=== PATIENT | male | born 1940 | race Caucasian/White ===

== ENCOUNTER 2019-02-02 17:01 | Inpatient (IN) | payer OTHER, MEDICAID ==
[~2019-02-02] VITALS: Ht 177.8 cm; Wt 79.4 kg
[~2019-02-02 17:01] MED LIST: AMLO5TAB4 PO; ASPI-1153 PO; BUS5 PO; CAT.1 PO; CAT.2 PO; DICL50TA9 PO; DIVA-74 PO; DOCU-19 PO; FAMO20TA8 PO; FURO-150 PO; GABA-529 PO; GLIP10TA11 PO; HYDR-4038 PO; LOPE2CAP PO; LORA-258 PO; LORA10TA7 PO; LOSA50TA3 PO; METF1000 PO; MIRA25TA PO; MOM PO; NAPR250T PO; POTA8TAB4 PO; PRO10 PO; PRO40 PO; SIME80TA PO; SSREG SUBCUT; TAMS-11 PO
[2019-02-02 17:05] VITALS: BP_SYST 146
[2019-02-02] MEDS ORDERED: NACL 0.9% 1,000 ML IV ONE (17:15)
[2019-02-02] MEDS ORDERED: MULT-976 PO (17:44)
[2019-02-02] MEDS ORDERED: POTASSIUM CL PO (17:44)
[2019-02-02] MEDS ORDERED: LOSA100T3 PO (17:44)
[2019-02-02] MEDS ORDERED: diclofenac gel TP (17:44)
[2019-02-02] MEDS ORDERED: GABA-529 PO (17:44)
[2019-02-02] MEDS ORDERED: ASCO500T20 PO (17:44)
[2019-02-02] MEDS ORDERED: ERYTHROMYCIN (17:44)
[2019-02-02] MEDS ORDERED: OLAN5TAB26 PO (17:44)
[2019-02-02] MEDS ORDERED: PRO20 PO (17:44)
[2019-02-02] MEDS ORDERED: SIMV20TA2 PO (17:44)
[2019-02-02] MEDS ORDERED: NAPR-1174 PO (17:44)
[2019-02-02] MEDS ORDERED: SSNOVOLOG SUBCUT (17:44)
[2019-02-02] MEDS ORDERED: FLUO30CR TP (17:44)
[2019-02-02] MEDS ORDERED: CODEINE PO (17:44)
[2019-02-02] MEDS ORDERED: FLUO60SO2 TP (17:44)
[2019-02-02] MEDS ORDERED: SENN8.6T19 PO (17:44)
[2019-02-02] MEDS ORDERED: ACETAMINOPHEN PO (17:44)
[2019-02-02] MEDS ORDERED: HYDC1% TP (17:44)
[2019-02-02 17:52] LABS: BASOPHILS % (AUTO) 0.5 % (0.0-2.0); EOSINOPHILS # (AUTO) 0.1 K/uL (0.0-0.4); EOSINOPHILS % (AUTO) 1.5 % (0.0-4.0); HEMATOCRIT 39.3 % (36-54); HEMOGLOBIN 12.8 g/dL (14.0-18.0); LYMPHOCYTES # (AUTO) 0.9 K/uL (1.0-5.5); LYMPHOCYTES % (AUTO) 13.6 % (20.5-51.5); MEAN CORPUSCULAR HEMOGLOBIN 31 pg (27-31); MEAN CORPUSCULAR HGB CONC 33 % (32-36); MEAN CORPUSCULAR VOLUME 95 fL (79.0-98.0); MONOCYTES # (AUTO) 1.3 K/uL (0.0-1.0); MONOCYTES % (AUTO) 19.5 % (1.7-9.3); NEUTROPHILS # (AUTO) 4.2 K/uL (1.8-7.7); NEUTROPHILS % (AUTO) 64.9 % (40.0-70.0); PLATELET COUNT (AUTO) 258 K/uL (130-430); RED BLOOD CELL COUNT(AUTO) 4.15 MIL/uL (4.2-6.2); RED CELL DISTRIBUTION WIDTH 14.3 % (9.0-15.0); WHITE BLOOD COUNT (AUTO) 6.5 K/uL (4.8-10.8)
[2019-02-02 18:01] LABS: ANION GAP 10 (5-15); CHLORIDE 109 mmol/L (98-107); CREATININE 2.23 mg/dL (0.55-1.30); GLUCOSE 174 mg/dL (70-99); POTASSIUM 5.2 mmol/L (3.5-5.1); SODIUM SERUM 143 mmol/L (136-145); UREA NITROGEN, BLOOD 57 mg/dL (8-21)
[2019-02-02 18:04] LABS: INR 1.1 (0.80-1.20); PROTHROMBIN TIME 11.4 SECS (9.5-12.5)
[2019-02-02 18:08] LABS: ALANINE AMINOTRANSFERASE 44 U/L (12-78); ALBUMIN 3.2 g/dL (3.4-4.8); ASPARTATE AMINOTRANSFERASE 73 U/L (10-37); TOTAL BILIRUBIN 0.3 mg/dL (0.0-1.0)
[2019-02-02 18:19] LABS: BILIRUBIN,URINE NEGATIVE (NEGATIVE); BLOOD, URINE NEGATIVE (NEGATIVE); CLARITY/URINE CLEAR (CLEAR); COLOR,URINE YELLOW (YELLOW); GLUCOSE,URINE NEGATIVE (NEGATIVE); KETONES,URINE TRACE (NEGATIVE); LEUKOCYTE ESTERASE ,URINE NEGATIVE (NEGATIVE); NITRITE, URINE NEGATIVE (NEGATIVE); PROTEIN URINE TRACE (NEGATIVE); UROBILINOGEN,URINE 0.2 (0.2-1.0)
[2019-02-02] MEDS ORDERED: SODIUM POLYSTYRENE SULFONATE 15 GM/60 ML UDBTL PO ONE (19:00)
[2019-02-02] MEDS ORDERED: HYDROcodone/ACETAMIN 5-325 MG TAB (NORCO/ VICODIN) PO PRN (19:45)
[2019-02-02] MEDS ORDERED: ACETAMINOPHEN 325 MG TABLET PO PRN (19:45)
[2019-02-02] MEDS ORDERED: ONDANSETRON HCL 4 MG/2 ML VIAL IVP PRN (19:45)
[2019-02-02 20:00] VITALS: BP_SYST 164
[2019-02-02 20:11] LABS: FREE T4 (FREE THYROXINE) 12.2 ng/dL (0.6-1.6); PHOSPHORUS 2.7 mg/dL (2.7-4.5); THYROID STIMULATING HORMONE 1.76 uIu/mL (0.34-4.82)
[2019-02-02 20:51] VITALS: BP_SYST 164
[2019-02-02] MEDS ORDERED: SIMETHICONE 80 MG TAB.CHEW PO PRN (21:30)
[2019-02-02] MEDS ORDERED: cloNIDine HCL 0.1 MG TABLET PO PRN (21:30)
[2019-02-02] MEDS ORDERED: MILK OF MAGNESIA 30 ML UDC PO PRN (21:30)
[2019-02-02] MEDS: 0.45% NACL 1,000 ML IV SCH (22:23)
[2019-02-03 06:22] LABS: BASOPHILS % (AUTO) 0.2 % (0.0-2.0); EOSINOPHILS # (AUTO) 0.1 K/uL (0.0-0.4); HEMATOCRIT 35.9 % (36-54); HEMOGLOBIN 11.9 g/dL (14.0-18.0); LYMPHOCYTES # (AUTO) 0.5 K/uL (1.0-5.5); LYMPHOCYTES % (AUTO) 8.7 % (20.5-51.5); MEAN CORPUSCULAR HEMOGLOBIN 31 pg (27-31); MEAN CORPUSCULAR HGB CONC 33 % (32-36); MEAN CORPUSCULAR VOLUME 94 fL (79.0-98.0); MONOCYTES # (AUTO) 1.3 K/uL (0.0-1.0); MONOCYTES % (AUTO) 22.1 % (1.7-9.3); NEUTROPHILS # (AUTO) 3.9 K/uL (1.8-7.7); PLATELET COUNT (AUTO) 234 K/uL (130-430); RED BLOOD CELL COUNT(AUTO) 3.81 MIL/uL (4.2-6.2); WHITE BLOOD COUNT (AUTO) 5.7 K/uL (4.8-10.8)
[2019-02-03 07:01] LABS: ANION GAP 8 (5-15); CALCIUM 9.7 mg/dL (8.4-11.0); CHLORIDE 112 mmol/L (98-107); CHOLESTEROL 120 mg/dL (<200); CREATININE 1.64 mg/dL (0.55-1.30); GLUCOSE 139 mg/dL (70-99); HDL CHOLESTEROL 21 mg/dL (>45); LDL CHOLESTEROL 81 mg/dL (<100); PHOSPHORUS 2.2 mg/dL (2.7-4.5); POTASSIUM 4.6 mmol/L (3.5-5.1); SODIUM SERUM 144 mmol/L (136-145); TRIGLYCERIDES 109 mg/dL (30-150); UREA NITROGEN, BLOOD 41 mg/dL (8-21)
[2019-02-03] MEDS: 0.45% NACL 1,000 ML IV SCH ×2 (09:44→21:24)
[2019-02-03] MEDS: ASPIRIN 81 MG TABLET(ECOTRIN) PO SCH (09:58)
[2019-02-03] MEDS: MULTIVITAMINS TAB 1 TABLET PO SCH (09:59)
[2019-02-03] MEDS: busPIRone HCL 5 MG TABLET PO SCH ×3 (09:59→21:31)
[2019-02-03] MEDS: DIVALPROEX SODIUM 500 MG TABLET( DEPAKOTE) PO SCH ×2 (09:59→21:33)
[2019-02-03] MEDS: ASCORBIC ACID 500 MG TABLET PO SCH (09:59)
[2019-02-03] MEDS: PANTOPRAZOLE SODIUM 40 MG TAB PO SCH (10:00)
[2019-02-03] MEDS: FAMOTIDINE 20 MG TABLET PO SCH (10:00)
[2019-02-03] MEDS: GABAPENTIN 100 MG CAPSULE PO SCH ×3 (10:01→21:33)
[2019-02-03] MEDS: DOCUSATE SODIUM 100 MG CAPSULE PO SCH (10:01)
[2019-02-03] MEDS: FLUoxetine HCL 20 MG CAPSULE (PROzac) PO SCH (10:01)
[2019-02-03] MEDS: TAMSULOSIN HCL 0.4 MG CAP PO SCH (10:02)
[2019-02-03] MEDS: cloNIDine HCL 0.2 MG TABLET PO SCH ×2 (10:02→21:32)
[2019-02-03] MEDS: amLODIPine BESYLATE 5 MG TABLET PO SCH (10:04)
[2019-02-03] MEDS: hydrALAZINE HCL 25 MG TABLET PO SCH ×3 (10:05→21:31)
[2019-02-03] MEDS: LOSARTAN POTASSIUM 50 MG TABLET (COZAAR) PO SCH ×2 (10:06→21:33)
[2019-02-03 12:20] VITALS: BP_SYST 159
[2019-02-03 16:45] VITALS: BP_SYST 112
[2019-02-03] MEDS: LORATADINE 10 MG TABLET PO SCH (17:07)
[2019-02-03] MEDS: PIPERACILLIN/TAZO 3.375/DEX-IS 50 ML IV SCH (17:08)
[2019-02-03] MEDS: SIMVASTATIN 20 MG TABLET PO SCH (18:22)
[2019-02-03 19:00] VITALS: BP_SYST 138
[2019-02-03 20:00] VITALS: BP_SYST 138
[2019-02-03] MEDS: SENNA 8.8 MG/5 ML UDC GT SCH (21:30)
[2019-02-03] MEDS: OLANZapine 5 MG TABLET PO SCH (21:33)
[2019-02-03] MEDS: HEPARIN SODIUM,PORCINE 5000 UNITS/ML VIAL SUBCUT SCH (21:39)
[2019-02-04 00:27] VITALS: BP_SYST 132
[2019-02-04] MEDS: PIPERACILLIN/TAZO 3.375/DEX-IS 50 ML IV SCH ×4 (00:28→18:03)
[2019-02-04] MEDS: 0.45% NACL 1,000 ML IV SCH ×2 (03:45→12:13)
[2019-02-04 06:05] LABS: BASOPHILS % (AUTO) 0.4 % (0.0-2.0); EOSINOPHILS # (AUTO) 0.1 K/uL (0.0-0.4); EOSINOPHILS % (AUTO) 1.5 % (0.0-4.0); HEMATOCRIT 39.2 % (36-54); LYMPHOCYTES # (AUTO) 1.4 K/uL (1.0-5.5); MEAN CORPUSCULAR HEMOGLOBIN 32 pg (27-31); MEAN CORPUSCULAR HGB CONC 33 % (32-36); MEAN CORPUSCULAR VOLUME 95 fL (79.0-98.0); MONOCYTES # (AUTO) 1.2 K/uL (0.0-1.0); MONOCYTES % (AUTO) 17.1 % (1.7-9.3); NEUTROPHILS # (AUTO) 4.5 K/uL (1.8-7.7); PLATELET COUNT (AUTO) 259 K/uL (130-430); RED BLOOD CELL COUNT(AUTO) 4.14 MIL/uL (4.2-6.2); RED CELL DISTRIBUTION WIDTH 14.5 % (9.0-15.0); WHITE BLOOD COUNT (AUTO) 7.2 K/uL (4.8-10.8)
[2019-02-04 06:22] LABS: ALANINE AMINOTRANSFERASE 41 U/L (12-78); ALBUMIN 2.5 g/dL (3.4-4.8); ANION GAP 4 (5-15); ASPARTATE AMINOTRANSFERASE 33 U/L (10-37); BILIRUBIN,DIRECT 0.1 mg/dL (0.0-0.3); CALCIUM 9.8 mg/dL (8.4-11.0); CHLORIDE 109 mmol/L (98-107); CREATININE 1.68 mg/dL (0.55-1.30); GLUCOSE 116 mg/dL (70-99); PHOSPHORUS 2.7 mg/dL (2.7-4.5); POTASSIUM 4.5 mmol/L (3.5-5.1); SODIUM SERUM 141 mmol/L (136-145); TOTAL BILIRUBIN 0.5 mg/dL (0.0-1.0); UREA NITROGEN, BLOOD 25 mg/dL (8-21)
[2019-02-04 07:14] VITALS: BP_SYST 139
[2019-02-04] MEDS: cloNIDine HCL 0.2 MG TABLET PO SCH ×2 (09:00→21:55)
[2019-02-04] MEDS: HEPARIN SODIUM,PORCINE 5000 UNITS/ML VIAL SUBCUT SCH ×2 (10:48→21:57)
[2019-02-04] MEDS: ASCORBIC ACID 500 MG TABLET PO SCH (12:20)
[2019-02-04] MEDS: ASPIRIN 81 MG TABLET(ECOTRIN) PO SCH (12:20)
[2019-02-04] MEDS: GABAPENTIN 100 MG CAPSULE PO SCH ×3 (12:20→21:55)
[2019-02-04] MEDS: busPIRone HCL 5 MG TABLET PO SCH ×3 (12:21→21:54)
[2019-02-04] MEDS: DOCUSATE SODIUM 100 MG CAPSULE PO SCH (12:21)
[2019-02-04] MEDS: MULTIVITAMINS TAB 1 TABLET PO SCH (12:22)
[2019-02-04] MEDS: LORATADINE 10 MG TABLET PO SCH (12:23)
[2019-02-04] MEDS: LOSARTAN POTASSIUM 50 MG TABLET (COZAAR) PO SCH ×2 (12:23→21:55)
[2019-02-04] MEDS: FAMOTIDINE 20 MG TABLET PO SCH (12:23)
[2019-02-04] MEDS: LACTOBACILLUS RHAMNOSUS GG 1 CAP CAPSULE PO SCH (12:23)
[2019-02-04] MEDS: DIVALPROEX SODIUM 500 MG TABLET( DEPAKOTE) PO SCH ×2 (12:23→21:54)
[2019-02-04] MEDS: PANTOPRAZOLE SODIUM 40 MG TAB PO SCH (12:24)
[2019-02-04] MEDS: amLODIPine BESYLATE 5 MG TABLET PO SCH (12:24)
[2019-02-04] MEDS: FLUoxetine HCL 20 MG CAPSULE (PROzac) PO SCH (12:25)
[2019-02-04] MEDS: TAMSULOSIN HCL 0.4 MG CAP PO SCH (12:25)
[2019-02-04] MEDS: hydrALAZINE HCL 25 MG TABLET PO SCH ×3 (12:26→21:54)
[2019-02-04 12:30] VITALS: BP_SYST 155
[2019-02-04 16:15] VITALS: BP_SYST 138; BP_SYST 155
[2019-02-04] MEDS ORDERED: BISACODYL 5 MG TABLET.DR (DULCOLAX) PO ONE (17:00)
[2019-02-04] MEDS ORDERED: GOLYTELY / COLYTE SOLUTION 4 LITERS PO ONE (18:00)
[2019-02-04] MEDS: SIMVASTATIN 20 MG TABLET PO SCH (18:03)
[2019-02-04] MEDS: INSULIN LISPRO SLIDING SCALE 100 UNITS/ML VIAL (humaLOG) SUBCUT PRN ×2 (18:14→22:03)
[2019-02-04 20:05] VITALS: BP_SYST 151
[2019-02-04] MEDS: SENNA 8.8 MG/5 ML UDC GT SCH (21:53)
[2019-02-04] MEDS: OLANZapine 5 MG TABLET PO SCH (21:55)
[2019-02-04] MEDS: cefTRIAXone 1 GM in D5W 50 ML IV SCH (22:19)
[2019-02-04] MEDS: MUPIROCIN 2% TOPICAL OINTMENT 22 GM NS SCH (22:20)
[2019-02-04 23:19] VITALS: BP_SYST 140
[2019-02-05] MEDS: metroNIDAZOLE 250 mg/NS 50 ML IV SCH ×4 (00:17→21:24)
[2019-02-05] MEDS: 0.45% NACL 1,000 ML IV SCH ×2 (05:54→17:19)
[2019-02-05 07:19] LABS: HEMATOCRIT 35.2 % (36-54); HEMOGLOBIN 11.8 g/dL (14.0-18.0); MEAN CORPUSCULAR HEMOGLOBIN 31 pg (27-31); MEAN CORPUSCULAR HGB CONC 33 % (32-36); MEAN CORPUSCULAR VOLUME 94 fL (79.0-98.0); PLATELET COUNT (AUTO) 234 K/uL (130-430); RED BLOOD CELL COUNT(AUTO) 3.76 MIL/uL (4.2-6.2); RED CELL DISTRIBUTION WIDTH 13.6 % (9.0-15.0)
[2019-02-05 07:23] LABS: INR 1.1 (0.80-1.20); PROTHROMBIN TIME 10.9 SECS (9.5-12.5)
[2019-02-05 07:39] LABS: ANION GAP 8 (5-15); CALCIUM 9.3 mg/dL (8.4-11.0); CHLORIDE 106 mmol/L (98-107); CREATININE 1.54 mg/dL (0.55-1.30); GLUCOSE 125 mg/dL (70-99); PHOSPHORUS 2.7 mg/dL (2.7-4.5); POTASSIUM 3.7 mmol/L (3.5-5.1); SODIUM SERUM 140 mmol/L (136-145); UREA NITROGEN, BLOOD 22 mg/dL (8-21)
[2019-02-05] MEDS: hydrALAZINE HCL 25 MG TABLET PO SCH ×3 (09:00→20:46)
[2019-02-05] MEDS: MULTIVITAMINS TAB 1 TABLET PO SCH (09:00)
[2019-02-05] MEDS: LACTOBACILLUS RHAMNOSUS GG 1 CAP CAPSULE PO SCH (09:00)
[2019-02-05] MEDS: ASCORBIC ACID 500 MG TABLET PO SCH (09:00)
[2019-02-05] MEDS: DOCUSATE SODIUM 100 MG CAPSULE PO SCH (09:00)
[2019-02-05] MEDS: busPIRone HCL 5 MG TABLET PO SCH ×3 (09:00→20:45)
[2019-02-05] MEDS: ASPIRIN 81 MG TABLET(ECOTRIN) PO SCH (09:00)
[2019-02-05] MEDS: LORATADINE 10 MG TABLET PO SCH (09:00)
[2019-02-05] MEDS: FAMOTIDINE 20 MG TABLET PO SCH (09:00)
[2019-02-05 09:17] VITALS: BP_SYST 121
[2019-02-05] MEDS: HEPARIN SODIUM,PORCINE 5000 UNITS/ML VIAL SUBCUT SCH ×2 (09:26→20:49)
[2019-02-05] MEDS: MUPIROCIN 2% TOPICAL OINTMENT 22 GM NS SCH ×2 (09:27→20:46)
[2019-02-05 10:38] LABS: ATYPICAL LYMPHOCYTES % 0 % (0-0); BAND % (MANUAL) 10 % (0-6); LYMPHOCYTES % (MANUAL) 14 % (20-46)
[2019-02-05 10:39] LABS: EOSINOPHILS % (MANUAL) 1 % (0-7); MONOCYTES % (MANUAL) 22 % (0-11)
[2019-02-05 10:40] LABS: BASOPHILS % (MANUAL) 1 % (0-2)
[2019-02-05 13:05] VITALS: BP_SYST 145
[2019-02-05] MEDS ORDERED: fentaNYL CITRATE/PF 100 MCG/2 ML AMP ONE (14:37)
[2019-02-05] MEDS ORDERED: MIDAZOLAM HCL 5 MG/5 ML VIAL ONE (14:38)
[2019-02-05] MEDS ORDERED: SIMETHICONE 40 MG/0.6 ML ML ONE (14:39)
[2019-02-05] MEDS: GABAPENTIN 100 MG CAPSULE PO SCH ×3 (15:00→20:45)
[2019-02-05 16:12] VITALS: BP_SYST 162
[2019-02-05] MEDS: amLODIPine BESYLATE 5 MG TABLET PO SCH (17:16)
[2019-02-05] MEDS: FLUoxetine HCL 20 MG CAPSULE (PROzac) PO SCH (17:16)
[2019-02-05] MEDS: TAMSULOSIN HCL 0.4 MG CAP PO SCH (17:16)
[2019-02-05] MEDS: PANTOPRAZOLE SODIUM 40 MG TAB PO SCH (17:17)
[2019-02-05] MEDS: DIVALPROEX SODIUM 500 MG TABLET( DEPAKOTE) PO SCH ×2 (17:17→20:47)
[2019-02-05] MEDS: cloNIDine HCL 0.2 MG TABLET PO SCH ×2 (17:17→20:46)
[2019-02-05] MEDS: LOSARTAN POTASSIUM 50 MG TABLET (COZAAR) PO SCH ×2 (17:18→20:44)
[2019-02-05] MEDS: SIMVASTATIN 20 MG TABLET PO SCH (17:29)
[2019-02-05 19:58] VITALS: BP_SYST 159
[2019-02-05] MEDS: OLANZapine 5 MG TABLET PO SCH (20:47)
[2019-02-05] MEDS: cefTRIAXone 1 GM in D5W 50 ML IV SCH (20:48)
[2019-02-05] MEDS: SENNA 8.8 MG/5 ML UDC GT SCH (20:53)
[2019-02-05 21:20] VITALS: BP_SYST 159
== END 2019-02-05 22:25 | DRG 682 ==
LOC: SED 17:01 → STU 19:39 → SMU 02-05 09:01
PROVIDERS: ADMIT Family Medicine; ATTEND Family Medicine
PROC: 0DBL8ZX Excision of Transverse Colon, Via Natural or Artificial Opening Endoscopic, Diagnostic (ICD-10-PCS; 2019-02-05)
PROC: 0DBM8ZX Excision of Descending Colon, Via Natural or Artificial Opening Endoscopic, Diagnostic (ICD-10-PCS; 2019-02-05)
PROC: 0DBP8ZX Excision of Rectum, Via Natural or Artificial Opening Endoscopic, Diagnostic (ICD-10-PCS; 2019-02-05)
PROC: 0DBK8ZX Excision of Ascending Colon, Via Natural or Artificial Opening Endoscopic, Diagnostic (ICD-10-PCS; principal; 2019-02-05 14:00)
DX: N17.0 Acute kidney failure with tubular necrosis (principal); G93.41 Metabolic encephalopathy; K52.9 Noninfective gastroenteritis and colitis, unspecified; E86.0 Dehydration; D64.9 Anemia, unspecified; E11.40 Type 2 diabetes mellitus with diabetic neuropathy, unspecified; E87.5 Hyperkalemia; F03.90 Unspecified dementia, unspecified severity, without behavioral disturbance, psychotic disturbance, mood disturbance, and anxiety; F31.9 Bipolar disorder, unspecified; G40.909 Epilepsy, unspecified, not intractable, without status epilepticus; I10 Essential (primary) hypertension; J44.9 Chronic obstructive pulmonary disease, unspecified; K21.9 Gastro-esophageal reflux disease without esophagitis; M11.9 Crystal arthropathy, unspecified; M19.90 Unspecified osteoarthritis, unspecified site; K76.0 Fatty (change of) liver, not elsewhere classified; N20.0 Calculus of kidney; N32.81 Overactive bladder; N40.0 Benign prostatic hyperplasia without lower urinary tract symptoms; Z74.01 Bed confinement status; Z85.828 Personal history of other malignant neoplasm of skin; Z86.73 Personal history of transient ischemic attack (TIA), and cerebral infarction without residual deficits; Z79.899 Other long term (current) drug therapy
CPT/HCPCS: 36415; 70450-TC; 71045; 72125-TC; 73502; 73552; 80048; 80053; 80061; 80076; 81003; 82150-TC; 82962; 83036; 83605; 83690-TC; 83735-TC; 84100-TC; 84439; 84443-TC; 84484; 85007; 85025; 85027; 85610-TC; 85730-TC; 87040-TC; 87081; 87086; 88305; 93005; 93306; 96360; 99285; G0378; J0696; J1644; J2250; J2543; J3010; J3490; J7030; J7060

== ENCOUNTER 2019-05-31 12:31 | Emergency (ER) | payer OTHER, MEDICAID ==
[~2019-05-31] VITALS: Ht 177.8 cm; Wt 81.6 kg
[~2019-05-31 12:31] MED LIST changes: +ACETAMINOPHEN PO; +ASCO500T20 PO; +CODEINE PO; -DICL50TA9 PO; +ERYTHROMYCIN; +FLUO30CR TP; +FLUO60SO2 TP; -FURO-150 PO; +HYDC1% TP; +LOSA100T3 PO; -LOSA50TA3 PO; +MULT-976 PO; +NAPR-1174 PO; -NAPR250T PO; +OLAN5TAB26 PO; -POTA8TAB4 PO; +POTASSIUM CL PO; -PRO10 PO; +PRO20 PO; +SENN8.6T19 PO; +SIMV20TA2 PO; +SSNOVOLOG SUBCUT; +diclofenac gel TP
--- NOTE | 2019-05-31 12:38 | NUR ---
Patient to ER bed 2 to gown for evaluation. Side rails up. Report given to JAX Hartmann.
--- NOTE | 2019-05-31 12:40 | NUR ---
PT BROUGHT TO ER BY AMBULANCE AFTER CHOKING ON LUNCH. PT ONLY COMPLAINT AT THIS TIME IS DYSPHAGIA
[2019-05-31 12:41] VITALS: BP_SYST 130
[2019-05-31] MEDS ORDERED: NACL 0.9% 1,000 ML IV ONE (12:42)
--- NOTE | 2019-05-31 12:55 | NUR ---
ER at bedside examining patient.
--- NOTE | 2019-05-31 13:00 | NUR ---
pt taken to CT accompanied by JAX Dumont.
[2019-05-31] MEDS ORDERED: GABA-529 PO (13:05)
[2019-05-31] MEDS ORDERED: ACET325T53 PO (13:05)
[2019-05-31] MEDS ORDERED: BISA10SU61 RC (13:05)
[2019-05-31] MEDS ORDERED: HYDR-4272 PO (13:05)
[2019-05-31] MEDS ORDERED: GLU500 PO (13:05)
--- NOTE | 2019-05-31 13:05 | NUR ---
Medication reconciliation completed with information provided by [facility]. Any prior medication reconciliation on file was reviewed and corrected.
[2019-05-31 13:06] LABS: BASOPHILS % (AUTO) 0.6 % (0.0-2.0); EOSINOPHILS # (AUTO) 0.1 K/uL (0.0-0.4); EOSINOPHILS % (AUTO) 1.8 % (0.0-4.0); HEMATOCRIT 43.3 % (36-54); HEMOGLOBIN 14.5 g/dL (14.0-18.0); LYMPHOCYTES # (AUTO) 1.6 K/uL (1.0-5.5); LYMPHOCYTES % (AUTO) 30.2 % (20.5-51.5); MEAN CORPUSCULAR HEMOGLOBIN 31 pg (27-31); MEAN CORPUSCULAR HGB CONC 34 % (32-36); MEAN CORPUSCULAR VOLUME 93 fL (79.0-98.0); MONOCYTES # (AUTO) 0.6 K/uL (0.0-1.0); MONOCYTES % (AUTO) 11.8 % (1.7-9.3); NEUTROPHILS # (AUTO) 2.9 K/uL (1.8-7.7); NEUTROPHILS % (AUTO) 55.6 % (40.0-70.0); PLATELET COUNT (AUTO) 191 K/uL (130-430); RED BLOOD CELL COUNT(AUTO) 4.68 MIL/uL (4.2-6.2); RED CELL DISTRIBUTION WIDTH 13.7 % (9.0-15.0); WHITE BLOOD COUNT (AUTO) 5.3 K/uL (4.8-10.8)
[2019-05-31] MEDS ORDERED: KETOROLAC TROMETHAMINE 30 MG VIAL IVP ONE (13:15)
[2019-05-31 13:21] LABS: ANION GAP 6 (5-15); CALCIUM 9.9 mg/dL (8.4-11.0); CHLORIDE 105 mmol/L (98-107); CREATININE 1.22 mg/dL (0.55-1.30); GLUCOSE 134 mg/dL (70-99); SODIUM SERUM 141 mmol/L (136-145); UREA NITROGEN, BLOOD 25 mg/dL (8-21)
[2019-05-31 13:24] LABS: PROTHROMBIN TIME 10.5 SECS (9.5-12.5)
--- NOTE | 2019-05-31 13:25 | NUR ---
22 gauge angiocath placed to L AC. Use of asceptic technique. Opsite placed over site. Blood return noted. Blood for lab drawn from site. Flushed with 10 cc of normal saline. No evidence of infiltration noted. Patient tolerated well.
[2019-05-31 13:27] LABS: ALANINE AMINOTRANSFERASE 16 U/L (12-78); ALBUMIN 3.9 g/dL (3.4-4.8); AMYLASE 68 U/L (0-100); ASPARTATE AMINOTRANSFERASE 9 U/L (10-37); LIPASE 184 U/L (73-393); TOTAL BILIRUBIN 0.4 mg/dL (0.0-1.0)
--- NOTE | 2019-05-31 13:45 | NUR ---
CT unable to obtain good pictures due to pt shaking from his parkinson's disease. Ativan is ordered and will be given.
[2019-05-31 13:57] LABS: BILIRUBIN,URINE NEGATIVE (NEGATIVE); BLOOD, URINE NEGATIVE (NEGATIVE); CLARITY/URINE CLEAR (CLEAR); COLOR,URINE YELLOW (YELLOW); GLUCOSE,URINE NEGATIVE (NEGATIVE); KETONES,URINE NEGATIVE (NEGATIVE); LEUKOCYTE ESTERASE ,URINE NEGATIVE (NEGATIVE); NITRITE, URINE NEGATIVE (NEGATIVE); PROTEIN URINE NEGATIVE (NEGATIVE); UROBILINOGEN,URINE 0.2 (0.2-1.0)
[2019-05-31] MEDS ORDERED: LORazepam 2 MG/ML VIAL IVP ONE (14:00)
[2019-05-31] MEDS ORDERED: NACL 0.9% 2,000 ML IV ONE (15:15)
--- NOTE | 2019-05-31 17:03 | NUR ---
Lab now has drawn the 3rd lactic acid. awaiting result, and may DC home.
--- NOTE | 2019-05-31 18:34 | NUR ---
pt is being picked up by [facility]. ETA 20 minutes
[2019-05-31 18:54] VITALS: BP_SYST 156
--- NOTE | 2019-05-31 18:56 | NUR ---
Patient given written and verbal discharge instructions and verbalizes understanding. ER MD discussed with patient the results and treatment provided. Patient in stable condition. ID arm band removed. IV catheter removed intact and dressing applied, no active bleeding. Patient educated on pain management and to follow up with PMD. Pain Scale 0. Opportunity for questions provided and answered. Medication side effect fact sheet provided.
== END 2019-05-31 18:54 | disposition home or self-care (01) ==
LOC: SED 12:31
DX: R09.89 Other specified symptoms and signs involving the circulatory and respiratory systems (principal); N18.9 Chronic kidney disease, unspecified; F03.90 Unspecified dementia, unspecified severity, without behavioral disturbance, psychotic disturbance, mood disturbance, and anxiety; J44.9 Chronic obstructive pulmonary disease, unspecified; E11.9 Type 2 diabetes mellitus without complications; I10 Essential (primary) hypertension; Z79.84 Long term (current) use of oral hypoglycemic drugs; Z79.899 Other long term (current) drug therapy
CPT/HCPCS: 36415; 71045; 74176; 80053; 81003; 82150; 82550; 83605; 83690; 84484; 85025; 85610; 85730; 87040; 93005; 96374; 96375; 99284; J1885; J2060; J7030

== ENCOUNTER 2019-06-01 07:53 | Emergency (ER) | payer OTHER, MEDICAID ==
[~2019-06-01] VITALS: Ht 177.8 cm; Wt 81.6 kg
[~2019-06-01 07:53] MED LIST changes: +ACET325T53 PO; -ACETAMINOPHEN PO; +BISA10SU61 RC; -CODEINE PO; -ERYTHROMYCIN; -FLUO30CR TP; -FLUO60SO2 TP; +GLU500 PO; -HYDC1% TP; +HYDR-4272 PO; -LOPE2CAP PO; -LORA-258 PO; -METF1000 PO; -MIRA25TA PO; -NAPR-1174 PO; -POTASSIUM CL PO; -SSNOVOLOG SUBCUT; -SSREG SUBCUT; -diclofenac gel TP
--- NOTE | 2019-06-01 07:58 | NUR ---
Placed in room 6 . Placed on hospital monitor, blood pressure machine and pulse oximeter. To gown for exam. Side rails up. Report given to JAX Perez.
[2019-06-01] MEDS ORDERED: NACL 0.9% 1,000 ML IV ONE ×2 (07:59→19:15)
--- NOTE | 2019-06-01 07:59 | NUR ---
Patient brought in by ambulance c/o mild pain and skin tear on right arm after being found facing down on the floor this morning. Patient has swelling around the eyes, redness across the chest and both knees. Patient is awake and oriented x2, respirations even and unlabored, answering questions appropriately. VSS, pain severity 2/10. Informed of the wait time. INstructed to notify ED staff for any changes in condition or worsening of symptoms. Patient verbalized understanding.
[2019-06-01 08:00] VITALS: BP_SYST 192
[2019-06-01] MEDS ORDERED: MORPHINE 4 MG/ML INJ. SYRINGE IVP ONE (08:00)
--- NOTE | 2019-06-01 08:00 | NUR ---
ER Dr. Navarro at bedside examining patient.
--- NOTE | 2019-06-01 08:20 | NUR ---
# 18 gauge angiocath placed to LAC. Use of asceptic technique. Opsite placed over site. Blood return noted. Blood for lab drawn from site. Flushed with 10 cc of normal saline. No evidence of infiltration noted. Patient tolerated well.
--- NOTE | 2019-06-01 08:24 | NUR ---
Administered Morphine sulfate and NS IV as ordered by Dr. Navarro. Patient tolerated the medications well.
--- NOTE | 2019-06-01 08:45 | NUR ---
ECG done at bedside as ordered by Dr. Navarro. Patient tolerated the procedure well.
--- NOTE | 2019-06-01 08:53 | NUR ---
# 16 FR In and Out catheter with use of sterile technique. Immediate return of 500 ml clear dark yellow urine noted. Urine sample collected and sent to lab. Pt tolerated procedure well. Patient unable to toilet self.
[2019-06-01] MEDS ORDERED: LORazepam 2 MG/ML VIAL IVP ONE ×2 (09:00→17:45)
[2019-06-01 09:01] LABS: BILIRUBIN,URINE NEGATIVE (NEGATIVE); BLOOD, URINE NEGATIVE (NEGATIVE); CLARITY/URINE CLEAR (CLEAR); COLOR,URINE YELLOW (YELLOW); GLUCOSE,URINE NEGATIVE (NEGATIVE); KETONES,URINE 1+ (NEGATIVE); LEUKOCYTE ESTERASE ,URINE NEGATIVE (NEGATIVE); NITRITE, URINE NEGATIVE (NEGATIVE); PROTEIN URINE TRACE (NEGATIVE); UROBILINOGEN,URINE 0.2 (0.2-1.0)
[2019-06-01 09:02] LABS: BASOPHILS % (AUTO) 0.2 % (0.0-2.0); EOSINOPHILS % (AUTO) 0.1 % (0.0-4.0); HEMATOCRIT 40.7 % (36-54); HEMOGLOBIN 13.6 g/dL (14.0-18.0); LYMPHOCYTES # (AUTO) 0.8 K/uL (1.0-5.5); LYMPHOCYTES % (AUTO) 7.7 % (20.5-51.5); MEAN CORPUSCULAR HEMOGLOBIN 31 pg (27-31); MEAN CORPUSCULAR HGB CONC 33 % (32-36); MEAN CORPUSCULAR VOLUME 93 fL (79.0-98.0); MONOCYTES # (AUTO) 0.8 K/uL (0.0-1.0); MONOCYTES % (AUTO) 8.2 % (1.7-9.3); NEUTROPHILS # (AUTO) 8.3 K/uL (1.8-7.7); NEUTROPHILS % (AUTO) 83.8 % (40.0-70.0); PLATELET COUNT (AUTO) 186 K/uL (130-430); RED CELL DISTRIBUTION WIDTH 13.8 % (9.0-15.0); WHITE BLOOD COUNT (AUTO) 9.9 K/uL (4.8-10.8)
--- NOTE | 2019-06-01 09:02 | NUR ---
Administered Ativan IVP as ordered by Dr. Navarro. Patient tolerated the medication well.
[2019-06-01 09:03] LABS: BACTERIA,URINE RARE /HPF (None Seen); RBC,URINE 0-3 /HPF (0-3); WBC,URINE 0-3 /HPF (0-3)
[2019-06-01 09:06] LABS: INR 1.1 (0.80-1.20); PROTHROMBIN TIME 11.1 SECS (9.5-12.5)
--- NOTE | 2019-06-01 09:16 | NUR ---
Patient taken to CT via gurney, in stable condition.
[2019-06-01 09:27] LABS: ANION GAP 10 (5-15); CHLORIDE 106 mmol/L (98-107); GLUCOSE 146 mg/dL (70-99); POTASSIUM 4.4 mmol/L (3.5-5.1); SODIUM SERUM 143 mmol/L (136-145); UREA NITROGEN, BLOOD 24 mg/dL (8-21)
[2019-06-01 09:33] LABS: ALANINE AMINOTRANSFERASE 20 U/L (12-78); ALBUMIN 4.1 g/dL (3.4-4.8); ASPARTATE AMINOTRANSFERASE 26 U/L (10-37); LIPASE 108 U/L (73-393); TOTAL BILIRUBIN 0.7 mg/dL (0.0-1.0)
--- NOTE | 2019-06-01 09:35 | NUR ---
Patient is back from CT, in stable condition.
[2019-06-01 10:04] LABS: CALCIUM 9.9 mg/dL (8.4-11.0); CKMB RELATIVE INDEX 1.3 (0.0-2.9); CREATINE KINASE MB 5.7 ng/mL (0-3.6)
--- NOTE | 2019-06-01 13:35 | NUR ---
Patient is sleeping comfortably in bed, no signs and symptoms of respiratory distress at this time.
--- NOTE | 2019-06-01 15:07 | NUR ---
Spoke to Lee Marques Billing Administrator, regarding pt status pending transfer/admission. A doc will call back to speak to Dr. Navarro. Requested fax of facesheet and clinicals.
--- NOTE | 2019-06-01 15:15 | NUR ---
Dr. Lehman, [facility] Doc, paged back to speak to Dr. Navarro regarding pt status.
--- NOTE | 2019-06-01 15:41 | NUR ---
Spoke with lee Marques case management assistant. She states she sent patient information to [facility]. Awaiting bed assignment and placement. Lee to set up transport if accepted.
--- NOTE | 2019-06-01 16:04 | NUR ---
Spoke with Awilda of [facility]. Answered some questions based on what the patient is presenting at this time. Informed her that I don't know what his baseline mentation is.
--- NOTE | 2019-06-01 16:41 | NUR ---
TRANSFER INFO [facility] RM: 28A Report: [phone] [facility] eta 60-90 minutes JAX Perez spoke to Lula at [facility] for transfer info.
--- NOTE | 2019-06-01 17:06 | NUR ---
Patient is resting comfortably in bed, respirations even and unlabored. Denied any pain at this time.
--- NOTE | 2019-06-01 18:46 | NUR ---
Patient is going to [facility]. [facility] is here @1013 to xfer patient
[2019-06-01] MEDS ORDERED: cloNIDine HCL 0.1 MG TABLET PO ONE (19:00)
--- NOTE | 2019-06-01 19:10 | NUR ---
Pt report received. Pt resting quietly, even and non-labored respirations. B/P 191/86, P 76, R 18, SPO2 94% RA. Dr. Navarro made aware of pt.s B/P. NS to be given.
--- NOTE | 2019-06-01 21:00 | NUR ---
Resting quietly with eyes closed, even and non-labored respirations. NAD, no needs verbalized.
[2019-06-01 22:00] VITALS: BP_SYST 153
--- NOTE | 2019-06-01 22:00 | NUR ---
Patient to be transferred to [facility]. Is being transferred due to request of insurance. Receiving facility has accepting physician and available space. ER physician has signed transfer form. Patient or responsible constitution party has agreed to transfer and signed form. Patient belongings inventoried and will be sent with patient. Copy of nursing notes, lab reports, EKG, Physicians Orders and X-rays to be sent with patient. Report called to JAX Gonzales at receiving facility at 2140. Receiving physician is Dr. Lehman. Pt leaves in c/o BLS ambulance.
== END 2019-06-01 22:00 ==
LOC: SED 07:53
DX: S80.211A Abrasion, right knee, initial encounter (principal); S80.212A Abrasion, left knee, initial encounter; M54.5 Low back pain; S55.912A Laceration of unspecified blood vessel at forearm level, left arm, initial encounter; S09.90XA Unspecified injury of head, initial encounter; Z79.84 Long term (current) use of oral hypoglycemic drugs; Z79.899 Other long term (current) drug therapy; E86.0 Dehydration; W19.XXXA Unspecified fall, initial encounter; Y93.89 Activity, other specified; Y92.89 Other specified places as the place of occurrence of the external cause; Y99.8 Other external cause status
CPT/HCPCS: 36415; 70450; 70486; 71045; 72100; 80053; 81000; 82550; 82553; 83605; 83690; 84484; 85025; 85610; 85730; 87040; 93005; 96361; 96374; 96375; 96376; 99285; J2060; J2270; J7030